=== PATIENT | male | born 1960 | race Caucasian/White ===

== ENCOUNTER → 2020-12-09 13:05 | Outpatient (CLI) | payer OTHER, SELFPAY ==
[2020-12-09 13:45] LABS: EGFR FINGERSTICK > 60.0000 mL/min (>60)
--- NOTE | 2020-12-09 13:45 | MRI_ITS ---
EXAM: MR HEAD WITHOUT AND WITH INTRAVENOUS CONTRAST : 1960 CLINICAL INDICATION: HEARING LOSS AND TINNITUS LEFT EAR X 8 MONTHS TECHNIQUE: Multiplanar and multisequence MR images of the brain were obtained without and with intravenous contrast. This report was created using [employer] report [employer] technology. CONTRAST: IV 15ml Dotare[employer] COMPARISON: None. FINDINGS: BRAIN AND EXTRA-AXIAL SPACES: Multiple foci of increased T2 signal intensity within the cerebral white consistent with inflammatory demyelination/chronic microvascular disease. No intra- or extra-axial hemorrhage. No evidence of acute infarct. No intracranial mass or mass effect. There is preservation of the bah/white matter interface. Posterior fossa structures are unremarkable. Ventricles are appropriate for age. No hydrocephalus. Basal cisterns are patent. SELLA: Unremarkable. Normal sella turcica, pituitary gland, infundibular stalk, optic chiasm and hypothalamus. AUDITORY SYSTEM: Unremarkable. The internal auditory canals are patent. BONES/JOINTS: Unremarkable. No discrete lytic or blastic abnormalities. SINUSES: Unremarkable as visualized. Clear. MASTOID AIR CELLS: Unremarkable as visualized. Clear. ORBITS: Unremarkable as visualized. Both globes, extraocular muscles, optic nerves and retrobulbar fat appear unremarkable. VASCULATURE: Unremarkable as visualized. Normal flow voids in the major intracranial circulation. MRI/Brain W/WO Contrast IMPRESSION: 1. White matter changes which may represent chronic microvascular disease or inflammatory demyelination. 2. No temporal bone abnormality. 3. Normal inner ear structures. at 1640 Reported and signed by: Trenton William MD Electronically Signed: Trenton William MD at 16:39 EDT Tel , Service support ,
== END ==
PROVIDERS: Referring Provider Otolaryngology; Visit Provider Otolaryngology
DX: H91.90 Unspecified hearing loss, unspecified ear (principal)
CPT/HCPCS: 70553; A9575